=== PATIENT | female | born 1975 | race Caucasian/White ===

== ENCOUNTER 2022-09-03 13:07 | Emergency (ER) | payer MEDICAID, SELFPAY ==
[2022-09-03 13:08] VITALS: BP 172/124; PULSE 130; RESP 18; TEMP 36.3; O2SAT 98; BMI 22.1
--- NOTE | 2022-09-03 14:42 | ED.RN ---
PT DID NOT SHOW UP WHEN NAME CALLED TO GO BACK TO ROOM, LWBS [id number]
== END 2022-09-03 14:40 | disposition left against medical advice (07) ==
LOC: ED 14:44
DX: F19.19 Other psychoactive substance abuse with unspecified psychoactive substance-induced disorder (principal)

== ENCOUNTER 2022-09-03 18:16 | Observation (INO) | payer OTHER, SELFPAY ==
[2022-09-03 18:17] VITALS: BP 116/97; PULSE 96; RESP 18; TEMP 36.8; O2SAT 94; BMI 21.9
--- NOTE | 2022-09-03 20:25 | EDS_ITS ---
HPI History of Present Illness Chief Complaint: Substance Abuse Informant: patient Narrative Narrative: Patient presents requesting detox from heroin. She states she knows there is sometimes fentanyl mixed in. She does not use meth benzodiazepines or drink alcohol. She has been using for about 4 years. She has never gone through detox. What made her come in and she just decided she needs to get off this drug as its not doing her any good. Her last use was about 24 hours ago. She states she is not getting diarrhea but she feels anxious. She states her skin is starting to crawl a little bit. She feels a little bit nauseated but is not vomiting. These are her typical withdrawal symptoms that she has had. She denies any other physical complaints or being ill recently until she started withdrawing. Patient is on losartan for high blood pressure. [facility] Medical History HTN (hypertension) Polysubstance abuse Tobacco use Home Medications losartan 50 mg-hydrochlorothiazide 12.5 mg tablet 1 tab PO DAILY 09/03/22 [History Last Taken Unknown] Allergy/AdvReac Type Severity Reaction Status Date / Time Penicillins Allergy Unknown Verified 09/03/22 18:18 Surgical History (Updated 09/03/22 @ 22:[address] April Kern MD) History of elective breast augmentation Social History Smoking Status: Current every day smoker tobacco type: cigarettes ROS ROS ED Constitutional Constitutional ED: Reports sweats; Denies fever(s) or subjective Eyes Eyes: Denies change in vision ENT ENT ED: Reports rhinorrhea; Denies sore throat Cardiovascular Cardiovascular: Denies palpitations Respiratory/Chest Respiratory/Chest: Denies cough Gastrointestinal Gastrointestinal: Reports nausea; Denies diarrhea or vomiting Musculoskeletal Musculoskeletal: Denies myalgias Integumentary Denies rash Neurologic Neurologic: Denies headache(s) Hematologic/Lymphatic Hematologic/Lymphatic: Denies lymphadenopathy Allergic/Immunologic Allergic/Immunologic ED: Denies urticaria EXAM Physical Exam Narrative Exam Narrative: Patient is awake alert. She does not look toxic or acutely ill. Mucous membranes are moist and there is no sign of facial trauma. Neck is supple Lungs are clear. Heart is regular. Not tachycardic to any significant degree. No murmur is heard. Abdomen is soft. It is not tender. Extremities show no swelling rash or tenderness. Neurologically she is awake she is alert and appropriate. She may have a slightly flat affect. Const Vital Signs: 09/03/22 18:17 Temperature 98.3 F Temperature Source Temporal Pulse Rate 96 Respiratory Rate 18 Blood Pressure 116/97 H Blood Pressure Mean 103 Pulse Ox 94 Oxygen Delivery Method Room Air MDM MDM MDM Narrative Medical decision making narrative: Patient CBC shows no marked abnormalities. Electrolytes showed low potassium which is replaced. Liver function test showed no marked abnormalities was negative Talk screen was a cocaine and benzodiazepines although she denied using these. The certainly could be mixed in with what she is given. Lab Data Attestation: I reviewed the patient's lab results. Discharge Plan Triage Chief Complaint: Substance Abuse ED Provider: Alvarado Dior Dx/Rx/DC Orders Clinical Impression: Opiate abuse, continuous, Opiate withdrawal, Desire for detoxification, Acute hypokalemia Primary Care Provider: Aniket Newman Disposition Disposition: Acute Care Hospital [facility]
--- NOTE | 2022-09-03 20:53 | PCM.HP.STD ---
HPI - General General Date of Admission: 09/03/22 Date of Service: 09/03/22 Chief Complaint: Acute Opiate Withdrawal HPI Narrative The patient is a 47 y/o F w/ PMHx: Untreated Anxiety and Depression, Tobacco use, HTN, olysubstance abuse (Heroin, Fentanyl, uses ~ 1/2 gm daily, started ~ 4 years prior following the of her brother) who presents to the [facility] ED on 09/03/22 w/ noted acute opiate withdrawal onset starting on day of presentation following last dose administered approximate 24 hours prior to current presentation with abdominal pain/cramping, generalized body aches and pains, rhinorrhea, anxiousness, restless leg, sweating, nausea without emesis, sensation of her skin crawling. Patient interested in attaining clean status. She has never undergone detox and has been using for approximately 4 years. Work-up in the ED included T98.3, heart rate 96, BP 116/97, respiratory rate 18, 94% oxygenation on room air, CBC, CMP, urine drug screen, ethyl alcohol level, testing all pending upon requested evaluation of patient. [facility] Medical History Anxiety and depression HTN (hypertension) Hypertension Polysubstance abuse Substance abuse Tobacco use Home Medications losartan 50 mg-hydrochlorothiazide 12.5 mg tablet 1 tab PO DAILY blood pressure 09/03/22 [History Last Taken 09/03/22] Allergy/AdvReac Type Severity Reaction Status Date / Time Penicillins Allergy Unknown Verified 09/03/22 18:18 Family History (Updated 09/03/22 @ 22:[address] April Kern MD) Mother Heart disease Hypertension other (Denies any marked paternal family history including HD, DM, CA.) Surgical History (Updated 09/03/22 @ 22:[address] April Kern MD) History of elective breast augmentation Social History (Updated 09/03/22 @ 22:[address] April Kern MD) Smoking Status: Current every day smoker tobacco type: cigarettes Smoking packs per day: 0.5 Smoking cigarettes per day: 10.0 alcohol intake: never substance use type: heroin, opiates and other details: Snorts heroin, fentanyl, usually 1/2 gm daily. ROS ROS Narrative Admission Review of Systems: CONSTITUTIONAL: No weight loss, fever, + chills, weakness or fatigue. HEENT: + Congestion, rhinorrhea Eyes: No visual loss, blurred vision, double vision or yellow sclerae. Ears, Nose, Throat: No hearing loss, sneezing, sore throat. SKIN: No rash or itching, lesions, wounds. CARDIOVASCULAR: No chest pain, chest pressure or chest discomfort, palpitations, edema, orthopnea, syncopal events. RESPIRATORY: No shortness of breath, cough or sputum, wheezing, hemoptysis. GASTROINTESTINAL: + anorexia, nausea without vomiting, abdominal cramping/pain. No diarrhea, melena, BRBPR. GENITOURINARY: No dysuria, frequency, urgency or retention. NEUROLOGICAL: + Restlessness, tactile disturbances no headache, dizziness, syncope, paralysis, ataxia, numbness or tingling in the extremities, focal weakness, change in bowel or bladder control, seizure. MUSCULOSKELETAL: + muscle, back pain, joint pain or stiffness. HEMATOLOGIC: No anemia, bleeding or bruising. LYMPHATICS: No enlarged nodes. No history of splenectomy. PSYCHIATRIC: + history of depression or anxiety. ENDOCRINOLOGIC: + reports of sweating, cold or heat intolerance. No polyuria or polydipsia. ALLERGIES: No history of asthma, hives, eczema or rhinitis. Vital Signs Vital Signs Vital Signs: 09/03/22 18:17 Temperature 98.3 F Temperature Source Temporal Pulse Rate 96 Respiratory Rate 18 Blood Pressure 116/97 H Blood Pressure Mean 103 Pulse Ox 94 Oxygen Delivery Method Room Air Weight Weight: 120 lb Body Mass Index (BMI) 21.9 Physical Exam Narrative Physical Examination: General: Awake, alert, oriented x 3 and cooperative, seated upright in the ED bed, fatigued, restless, yawning. Skin: Normal color, normal turgor, no icterus, no cyanosis except occasional staged ecchymoses. HEENT: AT/NC, EOMI, PERRLA, dry MM, no carotid bruits or JVD noted. Lungs: Diminished, greater bases, moderate effort, no rales, ronchi or wheezing. Heart: Improving, mildly tachycardic with regular rhythm; no gallop, rub audible. Abdomen: Soft, mild generalized discomfort with palpation but no rebound or guarding, ND, hyperactive BS, no HSM. Extremities: No cyanosis, clubbing, or edema. Neurological: Patient awake, alert, oriented as noted, cognitive function intact; pupils equally reactive to light and accommodation, cranial nerves II-XII grossly normal, moving all 4 extremities, no focal deficits, strength moderately global decrease secondary to acute withdrawal presentation, restless, mildly agitated Psychiatric: Affect appears restless, mildly agitated, suspect and discussed underlying depression and anxiety, usage of opiates started following the of her brother, tearful. Results Lab / Micro Data Result Diagrams: 09/03/22 21:16 09/03/22 21:16 Assessment & Plan Assessment/Plan (1) Opiate withdrawal: PLAN: Plan The patient is a 47 y/o F w/ PMHx: Untreated Anxiety and Depression, Tobacco use, HTN, olysubstance abuse (Heroin, Fentanyl, uses ~ 1/2 gm daily, started ~ 4 years prior following the of her brother) who presents to the [facility] ED on 09/03/22 w/ noted acute opiate withdrawal. #1. Acute Opiate Withdrawal: Will admit to [facility], routine labs as noted pending upon requested evaluation of patient, will initiate and continue on protocol with tapering course of Subutex, as needed tylenol, ibuprofen, bowel regimen, gabapentin, Bentyl, Vistaril, methocarbamol, clonidine, PRN nightly trazodone for insomnia, IV fluids, IV antiemetics. Once patient clinically improved and completion of taper nearing will plan consultation with case management for transition to next level of rehabilitation care. #2. Polysubstance Abuse: Given history we will obtain HIV and hepatitis panel although patient currently not candidate for hep C treatment currently as needs to be clean, sober x 6 months, documented attendance NA or AA meetings, counseling and ongoing negative drug screens. #3. Hypertension: Continue home regimen including losartan, PRN hydralazine. #4. Untreated anxiety and depression: Likely contributing greatly to patient's substance abuse, discussed potential for future medication as well as counseling/therapy with pending case management/substance abuse counselor evaluation. #5. Tobacco Abuse: Encouraged cessation, inpatient consultation per RT, NR if desired. #6. DVT prophylaxis: Low risk, encourage ambulation. Admission Evaluation Time spent evaluating chart, patient history, patient evaluation, care planning and discussion with specialists: 60 minutes. Charges/Coding Visit Charges Inpatient E&M: 67644 Init Hosp L2
[2022-09-03 21:20] VITALS: BP 124/91; PULSE 74; RESP 14; TEMP 37; O2SAT 99
[2022-09-03 21:32] LABS: Absolute Lymphocyte Count 3.99 X10^3/uL (0.83-4.51); Absolute Neutrophil Count 4.3 X10^3/uL (2.0-7.7); Basophil# 0.08 X10^3/uL; Basophil% 0.8 % (0-1); Eosinophil# 0.36 X10^3/uL; Eosinophils% 3.8 % (0-5); Hemoglobin 13.8 g/dL (12.0-15.0); Lymphocyte # 3.99 X10^3/ul (0.83-4.51); Mean Corp Hgb Conc 32.1 g/dL (32-36); Mean Corpuscular Hgb 29.7 pg (27.0-32.0); Mean Corpuscular Volume 92.7 fL (81-99); Mean Platelet Vol. 10.4 fl (6.2-12.0); Monocyte# 0.72 X10^3/uL; Monocyte% 7.6 % (0-10); NRBC Flagged by Analyzer 0 % (0-5); Neutrophil # 4.34 X10^3/uL (2.7-7.7); Neutrophil % 45.6 % (47-70); Platelet Count 309 K/mm3 (150-450); RBC Distribution Width CV 13.3 % (11.6-14.6); RBC Distribution Width SD 45.1 fl (35.1-43.9); Red Blood Count 4.64 M/mm3 (4.2-5.4); White Blood Count 9.5 K/mm3 (4.4-11.0)
[2022-09-03 21:43] LABS: Internal QC Validated? YES +Cl - CLEAR BKGD; Pregnancy, Serum, hCG Quali. NEGATIVE Negative
[2022-09-03 21:45] LABS: Alcohol, Blood (Medical)-Serum < 3.0 mg/dL
[2022-09-03 21:52] LABS: ALB/GLOB Ratio 0.8 RATIO (0.9-2.4); AST(SGOT) 10 U/L (15-37); Alanine Aminotransfer ALT/SGPT 17 U/L (13-56); Albumin, Serum 3.4 g/dL (3.2-5.0); Alkaline Phosphatase 58 U/L (45-117); Anion Gap 1 (5-15); BUN 14 mg/dL (7-18); BUN/Creat Ratio 18.3 RATIO (10-20); Calcium,Total 9.6 mg/dL (8.5-10.1); Chloride 100 mmol/L (98-107); Creatinine, Serum 0.76 mg/dL (0.55-1.02); EST Glomerular Filtration Rate 86 mL/min (>60); Est Glom Filt Rate - Afr Amer 104 mL/min (>60); Globulin 4.1 g/dL (2.2-4.2); Glucose 101 mg/dL (74-106); Potassium 2.9 mmol/L (3.5-5.1); Protein, Total 7.5 g/dL (6.4-8.2); Sodium Level 136 mmol/L (136-145)
[2022-09-03 21:54] LABS: Amphetamine Urine VISTA NEGATIVE (<1000 ng/mL); Barbiturate Urine VISTA NEGATIVE (< 200 ng/mL); Benzodiazepine Urine VISTA POSITIVE (< 200 ng/mL); Cocaine Urine VISTA POSITIVE (< 300 ng/mL); Ecstacy Urine VISTA NEGATIVE (< 500 ng/mL); Methadone Urine VISTA NEGATIVE (< 300 ng/mL); PCP Urine VISTA NEGATIVE (< 25 ng/mL); THC Urine VISTA NEGATIVE (< 50 ng/mL); Vista UDS pH Range 5
--- NOTE | 2022-09-03 22:00 | CM.ED ---
Social Work Note Referral Source: case find Referral Reason: PETRA STEPHEN met with patient and introduced herself and role as [facility] Wire Strander. Patient was sitting on hospital bed and agreeable to speak with HAILEE. SW inquired about patient's AOD use and knowledge of [facility] program. Patient reports herion use with last date Friday and reports no knowledge of [facility]. SW briefly reviewed rules including it being a voluntary program, patient's items being locked up, avergae length of detox is 3-5 days and patient will meet with addictions therapist, Dewey, for after care and discharge planning. Patient reports personal connection with Dewey and is requesting another staff member assist with discharge planning. SW validated patient's concerns and explained she would inform the treatment navigator so something else is arranged. Patient reports understanding and has no other questions at this time. HAILEE contacted treatment navigator and spoke with Dewey. SW reviewed patient reporting a conflict and requesting another staff to assist with discharge planning. Dewey aware and will coordinate with another staff member to assist patient. Plan: LORI Gann
[2022-09-03 22:18] VITALS: BMI 21.9
[2022-09-03 22:18] LABS: HIV - WCH Non-Reactive (Nonreactive)
[2022-09-03 22:35] VITALS: BP 112/89; PULSE 73; RESP 16; TEMP 36.8; O2SAT 97
[2022-09-03 22:39] LABS: Magnesium 2.1 mg/dL (1.6-2.6)
[2022-09-03] MEDS: Potassium Chloride Oral Tablet 20 MEQ 40 MEQ PO (22:56)
[2022-09-03] MEDS: Gabapentin 300 MG Capsule PO (23:02)
[2022-09-03 23:49] LABS: Hepatitis B Surface Antibody Non-Reactive; Hepatitis B Surface Antigen Non-Reactive (Nonreactive); Hepatitis C Antibody Non-Reactive (Nonreactive)
[2022-09-04] MEDS: cloNIDine HCl 0.1 MG Tablet PO ×2 (05:53→13:24)
[2022-09-04] MEDS: Methocarbamol 750 MG Tablet 1500 MG PO ×2 (05:53→13:24)
[2022-09-04 05:57] VITALS: BP 115/85; PULSE 70; RESP 12; TEMP 36.8; O2SAT 98
[2022-09-04 07:40] VITALS: O2SAT 98
--- NOTE | 2022-09-04 07:54 | PN.HOSP_ITS ---
Reason for Visit Reason for Visit: Diagnoses Opioid use, unspecified with withdrawal (09/03/22) Subjective Subjective Feels sick. Restless legs. Objective Data Objective Data Vital Signs: Vital Signs Temp Pulse Resp BP Pulse Ox O2 Del Method 36.8 C 70 12 115/85 H 98 Room Air 09/04/22 05:57 09/04/22 05:57 09/04/22 05:57 09/04/22 05:57 09/04/22 05:57 09/04/22 05:57 Oxygen Delivery Method Room Air Weight: 54.476 kg Body Mass Index (BMI) 21.9 Intake & Output: Intake and Output for Last 24 Hours 09/02/22 09/03/22 09/04/22 23:59 23:59 23:59 Intake Total 600 / 600 Balance 600 / 600 Lab / Micro Data Result Diagrams: 09/03/22 21:16 09/03/22 21:16 Labs: Laboratory Results - last 24 hr 09/03/22 21:16: HIV 1&2 Antibody Non-Reactive 09/03/22 21:16: WBC 9.5, RBC 4.64, Hgb 13.8, Hct 43.0, MCV 92.7, MCH 29.7, MCHC 32.1, RDW Std Deviation 45.1 H, RDW Coeff of Martha 13.3, Plt Count 309, MPV 10.4, Immature Gran % (Auto) 0.200, Neut % (Auto) 45.6 L, Lymph % (Auto) 42.0 H, [place] % (Auto) 7.6, Eos % (Auto) 3.8, Baso % (Auto) 0.8, Absolute Neuts (auto) 4.3, A bsolute Lymphs (auto) 3.99, Nucleated RBC % 0 09/03/22 21:16: Sodium 136, Potassium 2.9 L, Chloride 100, Carbon Dioxide 35.0 H , Anion Gap 1 L, BUN 14, Creatinine 0.76, Estim Creat Clear Calc 71.60, Est GFR (MDRD) Af Amer 104, Est GFR (MDRD) Non-Af 86, BUN/Creatinine Ratio 18.3, Glucose 101, Calcium 9.6, Total Bilirubin 0.30, AST 10 L, ALT 17, Alkaline Phosphatase 58, Total Protein 7.5, Albumin 3.4, Globulin 4.1, Albumin/Globulin Ratio 0.8 L 09/03/22 21:16: Ethyl Alcohol < 3.0 09/03/22 21:16: Serum , Qual NEGATIVE 09/03/22 21:16: Magnesium 2.1 09/03/22 21:16: Hep Bs Antigen Non-Reactive, Hep Bs Antibody Non-Reactive, Hepatitis C Antibody Non-Reactive 09/03/22 21:17: Urine Opiates Screen NEGATIVE, Urine Methadone Screen NEGATIVE, Ur Barbiturates Screen NEGATIVE, Ur Phencyclidine Scrn NEGATIVE, Ur Amphetamines Screen NEGATIVE, MDMA (Ecstasy) Screen NEGATIVE, U Benzodiazepines Scrn POSITIVE H, Urine Cocaine Screen POSITIVE H, U Cannabinoids Screen NEGATIVE, Ur Drug Screen Comment Physical Exam Const alert and no apparent distress HEENT head/scalp atraumatic and moist oral mucous membranes Psych Mood & Affect: anxious Assessment & Plan Assessment/Plan (1) Opiate withdrawal: PLAN: Buprenorphine taper as well as other medications for withdrawal symptoms consultation with case management for transition to next level of rehabilitation care. PLAN: Plan Chronic conditions: * Polysubstance Abuse: HIV and HCV work up negative, sober x 6 months, documented attendance NA or AA meetings, counseling and ongoing negative drug screens. * Hypertension: Continue home regimen including losartan, PRN hydralazine. * Untreated anxiety and depression: Likely contributing greatly to patient's substance abuse, discussed potential for future medication as well as counseling/therapy with pending case management/substance abuse counselor evaluation. * tobacco Abuse: Encouraged cessation, inpatient consultation per RT, NR if desired. DVT prophylaxis: Low risk, encourage ambulation. Charges/Coding Visit Charges Inpatient E&M: 77470 Subs Hosp L1
[2022-09-04] MEDS: hydroCHLOROthiazide 12.5mg 12.5 MG PO (09:57)
[2022-09-04] MEDS: Losartan Potassium 50 MG Tablet PO (09:57)
--- NOTE | 2022-09-04 10:07 | NURSING ---
from 8am-10 am sleeping
[2022-09-04] MEDS: Dicyclomine 10 MG Capsule 20 MG PO (10:20)
[2022-09-04] MEDS: Ondansetron 8 MG Tablet PO (10:20)
[2022-09-04] MEDS: Buprenorphine HCl 2 MG TAB.SUBL SL ×2 (10:20→17:33)
[2022-09-04] MEDS: Acetaminophen 325 MG Tablet 650 MG PO (10:20)
[2022-09-04 10:57] VITALS: BP 137/97; PULSE 96; RESP 18; TEMP 36.7; O2SAT 99
[2022-09-04] MEDS: Ibuprofen 600 MG Tablet PO ×2 (11:48→22:45)
[2022-09-04] MEDS: Gabapentin 300 MG Capsule PO ×2 (11:49→22:45)
[2022-09-04] MEDS: hydrOXYzine PAM 25 MG Capsule 50 MG PO (11:49)
[2022-09-04 13:46] VITALS: BP 158/75; PULSE 89; RESP 18; TEMP 36.6; O2SAT 100
[2022-09-04 22:41] VITALS: BP 147/107; PULSE 84; RESP 18; TEMP 36.6; O2SAT 98
[2022-09-05] MEDS: Methocarbamol 750 MG Tablet 1500 MG PO ×2 (02:07→14:09)
[2022-09-05] MEDS: Buprenorphine HCl 2 MG TAB.SUBL SL ×3 (02:07→17:49)
[2022-09-05 02:10] VITALS: BP 139/112; PULSE 85; RESP 16; TEMP 36.6; O2SAT 100
--- NOTE | 2022-09-05 07:29 | PCM.PN.HOSP ---
Reason for Visit Reason for Visit: Diagnoses Opioid use, unspecified with withdrawal (09/03/22) Subjective Subjective Feeling better. Still with restless legs. Objective Data Objective Data Vital Signs: Vital Signs Temp Pulse Resp BP Pulse Ox O2 Del Method 36.6 C 85 16 139/112 H 100 Room Air 09/05/22 02:10 09/05/22 02:10 09/05/22 02:10 09/05/22 02:10 09/05/22 02:10 09/05/22 02:10 Oxygen Delivery Method Room Air Weight: 54.476 kg Body Mass Index (BMI) 21.9 Intake & Output: Intake and Output for Last 24 Hours 09/03/22 09/04/22 09/05/22 23:59 23:59 23:59 Intake Total 950 / 950 650 / 650 Balance 950 / 950 650 / 650 Lab / Micro Data Result Diagrams: 09/03/22 21:16 09/03/22 21:16 Physical Exam Const alert and no apparent distress HEENT head/scalp atraumatic Resp normal respiratory effort and no retractions Assessment & Plan Assessment/Plan (1) Opiate withdrawal: PLAN: Buprenorphine taper as well as other medications for withdrawal symptoms consultation with case management for transition to next level of rehabilitation care. [facility] PLAN: Plan Chronic conditions: Polysubstance Abuse: HIV and HCV work up negative, sober x 6 months, documented attendance NA or AA meetings, counseling and ongoing negative drug screens. Hypertension: Continue home regimen including losartan, PRN hydralazine. Untreated anxiety and depression: Likely contributing greatly to patient's substance abuse, discussed potential for future medication as well as counseling/therapy with pending case management/substance abuse counselor evaluation. tobacco Abuse: Encouraged cessation, inpatient consultation per RT, NR if desired. DVT prophylaxis: Low risk, encourage ambulation. Charges/Coding Visit Charges Inpatient E&M: 17619 Subs Hosp L1
[2022-09-05 07:58] VITALS: BP 149/109; PULSE 96; RESP 18; TEMP 36.6; O2SAT 95
[2022-09-05] MEDS: Losartan Potassium 50 MG Tablet PO (08:01)
[2022-09-05] MEDS: hydrOXYzine PAM 25 MG Capsule 50 MG PO ×2 (08:01→14:09)
[2022-09-05] MEDS: hydroCHLOROthiazide 12.5mg 12.5 MG PO (08:01)
--- NOTE | 2022-09-05 08:39 | ADDICTION ---
This repairer typewriter met with client for d/c planning. Client is alert and oriented x4, pleasant with this repairer typewriter. Client indicates her DOC is Opioids (specifically Heroin/Fentanyl) she reports her use started approx. 4 years ago with the of her brother. She reports daily (multiple times) inhalation use of substance. Denies further use of substances. Reports h/o DUI of ETOH. Reports last ETOH use was around April 2022. 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 She reports family/friends/employer are not aware of her substance use or legal involvement. Client also has to adult children who are not aware of substance use. At this time her roommate is the only person who is aware of her substance use. Client reports she resides in a sober safe environment. Client indicates this is her first time attempted sobriety, she self-admitted to [facility] d/t the severity of opioid withdrawal symptoms. She denies involvement in 12-step community or treatment. She reports she has an appt. at [facility] 09/09 at 3:00 pm with Vianey. This repairer typewriter provided resources and information. Education re: MAT services offered through [facility]. Client signed LACIE for [facility] ([facility]), client has requested this repairer typewriter contact probation to inform that she admitted to [facility]. Client indicates she has an appt with probation tomorrow 09/06, she is not sure she will be d/'c'd in time to make appt.
[2022-09-05 10:36] VITALS: BP 135/98; PULSE 93; O2SAT 98
[2022-09-05 14:08] VITALS: BP 140/107; PULSE 106; RESP 18; TEMP 37.1; O2SAT 99
[2022-09-05] MEDS: Ibuprofen 600 MG Tablet PO ×2 (14:09→22:25)
[2022-09-05] MEDS: cloNIDine HCl 0.1 MG Tablet PO (14:09)
[2022-09-05] MEDS: Gabapentin 300 MG Capsule PO (17:49)
[2022-09-05] MEDS: Ondansetron 8 MG Tablet PO (17:51)
[2022-09-05] MEDS: Acetaminophen 325 MG Tablet 650 MG PO (19:25)
[2022-09-05 19:28] VITALS: PULSE 90
[2022-09-05 19:33] VITALS: BP 126/94; PULSE 83; RESP 18; TEMP 36.8; O2SAT 98
[2022-09-05] MEDS: traZODone 100 MG Tablet PO (21:09)
[2022-09-06] MEDS: Buprenorphine HCl 2 MG TAB.SUBL SL ×2 (02:13→09:53)
[2022-09-06 02:19] VITALS: BP 110/78; PULSE 66; RESP 16; TEMP 36.7; O2SAT 100
[2022-09-06] MEDS: Acetaminophen 325 MG Tablet 650 MG PO (05:14)
[2022-09-06] MEDS: hydrOXYzine PAM 25 MG Capsule 50 MG PO (05:16)
[2022-09-06 08:39] VITALS: BP 115/66; PULSE 70; RESP 18; TEMP 36.3; O2SAT 100
[2022-09-06] MEDS: hydroCHLOROthiazide 12.5mg 12.5 MG PO (08:44)
[2022-09-06] MEDS: cloNIDine HCl 0.1 MG Tablet PO (08:44)
[2022-09-06] MEDS: Methocarbamol 750 MG Tablet 1500 MG PO (08:44)
[2022-09-06] MEDS: Gabapentin 300 MG Capsule PO (08:44)
[2022-09-06] MEDS: Losartan Potassium 50 MG Tablet PO (08:44)
--- NOTE | 2022-09-06 09:54 | PCM.DC ---
Discharge Instructions Diet Discharge Diet: No restrictions Follow Up Care Test Results: Test results from this visit will be discussed in further detail at your follow-up appointment, if applicable. Discharge Plan Admission Admit Date/Time: 09/03/22 21:01 Primary Reason for Your Visit: opiate withdrawal Attending Provider: Mason Tam Primary Care Provider: Aniket Newman Consulting Providers: April Kern Instructions Additional Instructions / Restrictions: Follow up with [facility] intensive outpatient next week. Discharge Orders/Prescriptions Prescriptions: Discontinued losartan-hydrochlorothiazide 50-12.5 mg tablet 1 tab PO DAILY Label Comments: TAKE 1 TABLET BY MOUTH ONCE DAILY Referrals / Follow Up: Aniket Newman MD [Primary Care Provider] - Care Physician,No Primary [Non-Staff] - Disposition Disposition (needs filled in before D/C Order can be placed): Home, Self Care
--- NOTE | 2022-09-06 09:57 | PCM.DC.SUM ---
Providers Date of Admission: 09/03/22 Primary Care Physician: Dr. Aniket Newman MD Reason For Visit: OPIATE WITHDRAWL Diagnosis Discharge Diagnosis (1) Opiate withdrawal: Status: Acute Code(s): F11.93 - Opioid use, unspecified with withdrawal Plan: Buprenorphine taper as well as other medications for withdrawal symptoms consultation with case management for transition to next level of rehabilitation care. Patient to follow up with [facility] for [facility] Offered to keep the patient 1 more night to complete the 3-day taper of buprenorphine, she declines, preferring to discharge today. Plan Chronic conditions: Polysubstance Abuse: HIV and HCV work up negative, sober x 6 months, documented attendance NA or AA meetings, counseling and ongoing negative drug screens. Hypertension: Continue home regimen including losartan, PRN hydralazine. Untreated anxiety and depression: Likely contributing greatly to patient's substance abuse, discussed potential for future medication as well as counseling/therapy with pending case management/substance abuse counselor evaluation. tobacco Abuse: Encouraged cessation, inpatient consultation per RT, NR if desired. DVT prophylaxis: Low risk, encourage ambulation. Hospital Course Operations None Summary of Care Provided Minutes Spent on Discharge: 26 Physical Exam Const alert and no apparent distress General Appearance: cooperative and comfortable HEENT normocephalic and head/scalp atraumatic Weight / BMI Weight Weight: 54.476 kg Body Mass Index (BMI) 21.9 ABG / Lab / Microbiology Data Result Diagrams: 09/03/22 21:16 09/03/22 21:16 D/C Instructions Discharge Diet: No restrictions Meaningful Use Info Meaningful Use Diagnoses (Choose all that apply): None applicable Discharge Plan Admission Admit Date/Time: 09/03/22 21:01 Primary Reason for Your Visit: opiate withdrawal Attending Provider: Mason Tam Primary Care Provider: Aniket Newman Consulting Providers: April Kern Instructions Additional Instructions / Restrictions: Follow up with [facility] intensive outpatient next week. Discharge Orders/Prescriptions Prescriptions: Discontinued losartan-hydrochlorothiazide 50-12.5 mg tablet 1 tab PO DAILY Label Comments: TAKE 1 TABLET BY MOUTH ONCE DAILY Referrals / Follow Up: Aniket Newman MD [Primary Care Provider] - Care Physician,No Primary [Non-Staff] - Disposition Disposition (needs filled in before D/C Order can be placed): Home, Self Care Charges/Coding Visit Charges Inpatient E&M: 71132 Disch Hosp
== END 2022-09-06 10:49 | disposition home or self-care (01) ==
LOC: ED 20:33 → MS3 21:59
PROVIDERS: Admitting Provider Family Medicine; Emergency Provider Emergency Medicine; PCP Family Medicine
DX: F11.23 Opioid dependence with withdrawal (principal); E87.6 Hypokalemia; I10 Essential (primary) hypertension; F17.210 Nicotine dependence, cigarettes, uncomplicated; Z79.899 Other long term (current) drug therapy
CPT/HCPCS: 36415; 80053; 80307; 82077; 83735; 84703; 85025; 86703; 86706; 86803; 87340; 99283; 99406; H0012

== ENCOUNTER 2023-08-21 13:39 | Emergency (ER) | payer MEDICAID, SELFPAY ==
[2023-08-21 13:39] VITALS: BP 160/110; PULSE 114; RESP 18; O2SAT 100
[2023-08-21 13:40] VITALS: BP 154/11; PULSE 111; RESP 18; TEMP 36.6; O2SAT 100; BMI 21.6
--- NOTE | 2023-08-21 14:05 | ED.VIS.GI ---
HPI HPI - GI History of Present Illness Chief Complaint: Abd Pain Informant: patient Narrative Narrative: 48-year-old female presenting to the emergency room with chief complaint of nausea. Patient states for about 1 week she has had persistent nausea. This is caused her to basically only consume liquids in an effort to stay hydrated. She states she feels worse when she gets up and moves around. She states that she has tried some Pepto-Bismol couple days ago and for the past 2 days now has noted that her stool seems black. She notes a metallic/chemical like taste in her mouth/burps. She does note some indigestion. She denies any pain in the abdomen. She denies any known gallbladder or pancreatic issues. No reported fevers. Stools alternate between solid and diarrhea. No reported rashes. PFSH PFSH Medical History Acute hypokalemia Anxiety and depression HTN (hypertension) Hypertension Opiate abuse, continuous Polysubstance abuse Substance abuse Tobacco use Home Medications ciprofloxacin HCl 500 mg tablet 500 mg PO BID #14 TABLETS 08/21/23 [Rx Last Taken Unknown] metronidazole 500 mg tablet 500 mg PO Q8H #21 tabs 08/21/23 [Rx Last Taken Unknown] ondansetron 4 mg disintegrating tablet 4 mg PO Q6H PRN PRN Nausea #20 tabs 08/21/23 [Rx Last Taken Unknown] Allergy/AdvReac Type Severity Reaction Status Date / Time Penicillins Allergy Unknown Verified 08/21/23 13:39 Family History Mother Heart disease Hypertension Surgical History History of elective breast augmentation Social History Smoking Status: Current every day smoker tobacco type: e-cigarettes alcohol intake: never substance use type: heroin, opiates and other details: Snorts heroin, fentanyl, usually 1/2 gm daily. ROS ROS ED Constitutional Constitutional ED: Denies chills, fever(s) or weight loss Eyes Eyes: Denies change in vision or diplopia ENT ENT ED: Denies ear pain, rhinorrhea or sore throat Cardiovascular Cardiovascular: Denies chest pain, orthopnea, palpitations or racing heartbeat Respiratory/Chest Respiratory/Chest: Denies cough, dyspnea or orthopnea Gastrointestinal Gastrointestinal: Reports diarrhea and nausea; Denies abdominal pain, constipation, melena or vomiting Genitourinary Genitourinary ED: Denies dysuria, hematuria or urinary frequency Musculoskeletal Musculoskeletal: Denies arthralgias, back pain or myalgias Integumentary Denies abscess or rash Neurologic Neurologic: Denies headache(s) or weakness Psychiatric Psychiatric: Denies anxiety, depression, suicidal ideation or suicidal thoughts Endocrine Endocrinology: Denies polydipsia, polyphagia or polyuria Allergic/Immunologic Allergic/Immunologic ED: Denies mouth swelling, tongue swelling or urticaria EXAM Physical Exam Const Vital Signs: 08/21/23 13:40 08/21/23 13:39 08/21/23 15:39 Temperature 98 F Temperature Source Temporal Pulse Rate 111 H 114 H 78 Respiratory Rate 18 18 16 Blood Pressure 154/11 H 160/110 H 126/78 H Blood Pressure Mean 58 126 94 Pulse Ox 100 100 99 Oxygen Delivery Method Room Air Room Air Room Air Positive well nourished and well developed General Appearance ED: well developed HEENT Reports normocephalic, head/scalp atraumatic and moist mucous membranes Eyes PERRL and EOMs intact bilaterally Neck no lymphadenopathy, supple and no JVD Resp normal respiratory effort and clear to auscultation bilaterally Cardio regular rate, regular rhythm and no murmurs Rate: tachycardic GI normal to inspection, nondistended, normoactive bowel sounds and non-tender Palpation: soft Back/Spine no CVA tenderness and normal ROM Extremity normal to inspection General Extremety ED: Negative for edema General Extremity: Negative for edema Neuro oriented x3 and CN's II-XII intact bilaterally Sensorium / Orientation: alert Motor Exam: strength 5/5 throughout Psych mental status grossly normal Mood & Affect: Negative for depressed or tearful Skin no rashes or lesions noted and no wounds MDM MDM MDM Narrative Medical decision making narrative: White count 8.9 hemoglobin 13.1 platelet count of 393. Normal liver enzymes and lipase. Creatinine 0.74 glucose 95. test is negative. CT of the abdomen pelvis was obtained. This demonstrated fluid-filled distal small bowel loops with thickened wall. There is diffuse thickening of the colon suggestive of diffuse colitis. Her abdominal exam really has not changed. It is minimally tender. We talked about the need for her to establish primary care and will most likely need follow-up endoscopy or colonoscopy. We talked about whether or not to do antibiotics and at this point given the change in her symptomology in the past week it is reasonable that we treat with Cipro and Flagyl (penicillin allergy). I will continue to write for some Levi. She is unsure who she wishes to establish primary care with. She had not seen her primary care doctor since 2017 and they are now not accepting new patients. I can refer to general surgery to discuss possible endoscopy/colonoscopy if persistent symptoms or if she wishes to explore that. Patient is comfortable with this plan. It should be noted that the patient was tachycardic when she came in however now she has a heart rate of 78 blood pressure 126/78. History & Record Review Discussion w/independent historian: Patient Lab Data Attestation: I reviewed the patient's lab results. Labs: Laboratory Results - last 24 hr 08/21/23 14:20 WBC 8.9 RBC 4.47 Hgb 13.1 Hct 40.1 MCV 89.7 MCH 29.3 MCHC 32.7 RDW Std Deviation 42.7 RDW Coeff of Martha 13.1 Plt Count 393 MPV 10.7 Immature Gran % (Auto) 0.100 Neut % (Auto) 71.3 H Lymph % (Auto) 20.7 [place] % (Auto) 6.9 Eos % (Auto) 0.3 Baso % (Auto) 0.7 Absolute Neuts (auto) 6.3 Absolute Lymphs (auto) 1.84 Nucleated RBC % 0 Sodium 140 Potassium 3.6 Chloride 108 H Carbon Dioxide 27.0 Anion Gap 5 BUN 16 Creatinine 0.74 Estim Creat Clear Calc 72.73 Est GFR (MDRD) Af Amer 107 Est GFR (MDRD) Non-Af 89 BUN/Creatinine Ratio 21.7 H Glucose 95 Calcium 9.4 Total Bilirubin 0.50 Direct Bilirubin 0.16 AST 10 L ALT 16 Alkaline Phosphatase 50 Total Protein 7.5 Albumin 3.8 Globulin 3.7 Lipase 27 Serum , Qual NEGATIVE Radiography Diagnostic Testing: Clinical Impression(s) from Imaging Studies Abdomen/Pelvis CT 08/21/23 14:45 IMPRESSION: Colitis. Abnormal appearance of distal small bowel loops with thickened wall and fluid-filled bowel loops. Crohn''s disease should be ruled out. Electronically Signed: Alec Villalobos MD at 15:27 EDT , Discharge Plan Triage Chief Complaint: Abd Pain ED Provider: Peter Anne Dx/Rx/DC Orders Clinical Impression: Colitis, Nausea Instructions: ED Understanding Colitis Prescriptions: New ondansetron [ondansetron] 4 mg tablet,disintegrating 4 mg PO Q6H PRN PRN (Reason: Nausea) Qty: 20 0RF metronidazole [metronidazole] 500 mg tablet 500 mg PO Q8H Qty: 21 0RF ciprofloxacin HCl [ciprofloxacin HCl] 500 mg tablet 500 mg PO BID Qty: 14 0RF Primary Care Provider: Care Physician,No Primary Referrals: Dominique Jernigan MD [Med Staff - Active Staff] - As soon as possible (for primary care) Helga Ortega MD [Med Staff - Active Staff] - As soon as possible (for surgical evaluation/colonoscopy) Care Physician,No Primary [Primary Care Provider] - Disposition Disposition: Home, Self Care
[2023-08-21 14:34] LABS: Internal QC Validated? YES +Cl - CLEAR BKGD; Pregnancy, Serum, hCG Quali. NEGATIVE Negative
[2023-08-21] MEDS: Ondansetron 4 MG/2 ML Vial IV (14:34)
[2023-08-21] MEDS: 0.9% Normal Saline (1000mL) 1,000 ML 1000 ML IV (14:34)
[2023-08-21 14:36] LABS: Absolute Lymphocyte Count 1.84 X10^3/uL (0.83-4.51); Absolute Neutrophil Count 6.3 X10^3/uL (2.0-7.7); Basophil# 0.06 X10^3/uL; Basophil% 0.7 % (0-1); Eosinophil# 0.03 X10^3/uL; Eosinophils% 0.3 % (0-5); Hematocrit 40.1 % (37-47); Hemoglobin 13.1 g/dL (12.0-15.0); Lymphocyte # 1.84 X10^3/ul (0.83-4.51); Lymphocyte % 20.7 % (19-41); Mean Corp Hgb Conc 32.7 g/dL (32-36); Mean Corpuscular Hgb 29.3 pg (27.0-32.0); Mean Corpuscular Volume 89.7 fL (81-99); Mean Platelet Vol. 10.7 fl (6.2-12.0); Monocyte# 0.61 X10^3/uL; Monocyte% 6.9 % (0-10); NRBC Flagged by Analyzer 0 % (0-5); Neutrophil # 6.32 X10^3/uL (2.7-7.7); Neutrophil % 71.3 % (47-70); Platelet Count 393 K/mm3 (150-450); RBC Distribution Width CV 13.1 % (11.6-14.6); RBC Distribution Width SD 42.7 fl (35.1-43.9); Red Blood Count 4.47 M/mm3 (4.2-5.4); White Blood Count 8.9 K/mm3 (4.4-11.0)
[2023-08-21 14:43] LABS: AST(SGOT) 10 U/L (15-37); Alanine Aminotransfer ALT/SGPT 16 U/L (13-56); Albumin, Serum 3.8 g/dL (3.2-5.0); Alkaline Phosphatase 50 U/L (45-117); Anion Gap 5 (5-15); BUN 16 mg/dL (7-18); BUN/Creat Ratio 21.7 RATIO (10-20); Bilirubin, Direct 0.16 mg/dL (0.00-0.30); Calcium,Total 9.4 mg/dL (8.5-10.1); Chloride 108 mmol/L (98-107); Creatinine, Serum 0.74 mg/dL (0.55-1.02); EST Glomerular Filtration Rate 89 mL/min (>60); Est Glom Filt Rate - Afr Amer 107 mL/min (>60); Estimated Creatinine Clearance 72.73 ml/min; Globulin 3.7 g/dL (2.2-4.2); Glucose 95 mg/dL (74-106); Lipase 27 U/L (13-75); Potassium 3.6 mmol/L (3.5-5.1); Protein, Total 7.5 g/dL (6.4-8.2); Sodium Level 140 mmol/L (136-145)
--- NOTE | 2023-08-21 14:45 | CT_ITS ---
STUDY: CT ABDOMEN AND PELVIS WITH CONTRAST REASON FOR EXAM: Female, 48 years old. Abdominal pain. Breast has a foul odor. RADIATION DOSAGE (If Supplied By Facility): CTDIvol = ( 11.45 ) mGy, DLP = ( 315.93 ) mGycm TECHNIQUE: Transaxial images were obtained from the dome of the diaphragm to the symphysis pubis without oral contrast. IV 100mL Isovue-300 was administered. Sagittal and coronal images were reconstructed. Individualized dose optimization techniques were used for this CT. COMPARISON: None. FINDINGS: There is evidence of bilateral breast prostheses. The visualized lung bases are unremarkable. The visualized portions of the heart are within normal limits. Normal liver. Normal gallbladder and extrahepatic biliary system. Normal spleen. Normal pancreas. Normal bilateral adrenal glands. Normal right kidney. Normal left kidney. Normal visualized stomach. There is fluid filled distal small bowel loops with thickened wall. Inflammatory bowel disease such as Crohn''s disease should be ruled out. There is diffuse thickening of the colon suggestive of diffuse colitis. The appendix is visualized and appears normal. Normal abdominal aorta. Normal inferior vena cava. Normal retroperitoneum. Normal urinary bladder. Normal abdominal wall. Normal osseous structures. CT/Abdomen/Pelvis W IV Cont ONLY IMPRESSION: Colitis. Abnormal appearance of distal small bowel loops with thickened wall and fluid-filled bowel loops. Crohn''s disease should be ruled out. Electronically Signed: Alec Villalobos MD at 15:27 EDT ,
[2023-08-21 15:39] VITALS: BP 126/78; PULSE 78; RESP 16; O2SAT 99
[2023-08-21 16:00] VITALS: BP 118/79; PULSE 67; RESP 14; TEMP 36.4; O2SAT 99
== END 2023-08-21 16:07 | disposition home or self-care (01) ==
PROVIDERS: Emergency Provider Emergency Medicine; Visit Provider Emergency Medicine
DX: R11.0 Nausea (principal); K52.9 Noninfective gastroenteritis and colitis, unspecified; I10 Essential (primary) hypertension
CPT/HCPCS: 74177; 80048; 80076; 83690; 84703; 85025; 96361; 96374; 99283; J7030; Q9967; A4216; J2405

== ENCOUNTER 2023-10-24 15:30 | Emergency (ER) | payer MEDICAID, SELFPAY ==
[2023-10-24 15:30] VITALS: BP 140/110; BP 158/112; PULSE 107; PULSE 113; RESP 14; RESP 20; TEMP 36.6; O2SAT 98; O2SAT 99; BMI 20.2
--- NOTE | 2023-10-24 15:53 | EDS_ITS ---
HPI History of Present Illness Chief Complaint: Nausea/Vomiting Detail of Chief Complaint: Patient presents with nausea. She said dry heaves. She states it is diffi Informant: patient Onset/Context/Timing Onset: Month(s) Context: Gradual Onset Timing: Continuous Quality: Nausea with dry heaves Location: GI Current Severity: Moderate Maximum Severity: Severe Worsened by: Nothing Relieved by: Nothing Associated Symptoms Associated Symptoms: Diarrhea with mucus. Narrative Narrative: Patient is a 48-year-old woman. Patient was seen August 20 and radiologic imaging and history were suggestive of Crohn's disease. Patient underwent colonoscopy by Dr. Brizuela. He did not see any abnormalities. Biopsy results are pending. Patient denies fever, chills night sweats. Patient does report significant nausea. There is no precipitating or alleviating factors. Patient states she has dry heaves. She is not able to vomit. She states currently vomited twice in her life. Patient reports a 10 kg weight loss over the past 2 months. Patient denies fever, chills night sweats. Patient denies HEENT symptoms. Patient denies cardiac respiratory symptoms. Patient presently denies abdominal pain. When she does have abdominal pain was upper abdomen. Denies intolerance to greasy or fried foods. She has had no abdominal surgery. She denies urologic symptoms. Prior similar symptoms: Yes Recent Illness/Hospitalization: Yes PFSH PFSH Medical History Substance abuse Hypertension Anxiety and depression Acute hypokalemia Opiate abuse, continuous HTN (hypertension) Polysubstance abuse Tobacco use Home Medications ?Medication ?Instructions ?Recorded ?Last Taken ?Type ondansetron 4 mg disintegrating 4 mg PO Q8H PRN PRN Nausea #20 tabs 10/24/23 Unknown Rx tablet Allergy/AdvReac Type Severity Reaction Status Date / Time Penicillins Allergy Unknown Verified 10/24/23 15:31 Family History Mother Heart disease Hypertension Surgical History History of elective breast augmentation Social History Smoking Status: Current every day smoker tobacco type: e-cigarettes alcohol intake: never substance use type: heroin, opiates and other details: Snorts heroin, fentanyl, usually 1/2 gm daily. ROS ROS ED Constitutional Constitutional ED: Reports weight loss; Denies chills, fever(s), subjective or sweats Eyes Eyes: Denies blurry vision, change in vision or diplopia ENT ENT ED: Denies ear pain, rhinorrhea or sore throat Cardiovascular Cardiovascular: Denies chest pain, palpitations or racing heartbeat Respiratory/Chest Respiratory/Chest: Denies cough, dyspnea or dyspnea on exertion Gastrointestinal Gastrointestinal: Reports abdominal pain, diarrhea and nausea; Denies constipation, melena or vomiting Genitourinary Genitourinary ED: Denies dysuria, hematuria or urinary frequency Musculoskeletal Musculoskeletal: Denies arthralgias or myalgias Integumentary Denies rash Neurologic Neurologic: Denies headache(s) or paresthesias Endocrine Endocrinology: Denies cold intolerance or heat intolerance Hematologic/Lymphatic Hematologic/Lymphatic: Reports systems reviewed and no addt'l complaints, except as documented EXAM Physical Exam Const Vital Signs: 10/24/23 15:30 10/24/23 15:30 10/24/23 17:30 Temperature 97.9 F Temperature Source Temporal Pulse Rate 107 H 113 H 70 Respiratory Rate 14 20 H 14 Blood Pressure 158/112 H 140/110 H Blood Pressure Mean 127 120 Pulse Ox 99 98 92 Oxygen Delivery Method Room Air Positive well nourished and well developed General Appearance ED: well developed and NAD; Negative for cyanotic or diaphoretic HEENT Reports moist mucous membranes HEENT Narrative: Head is atraumatic normocephalic. Ears normal. Nares patent. Patient does have tobacco odor to her breath. She states she vapes. She has not smoked a cigarette in a year. Eyes PERRL and EOMs intact bilaterally General Eye ED: Negative for pale conjunctiva or scleral icterus Neck no lymphadenopathy, supple and no JVD Chest Wall inspection of chest normal and palpation of chest normal Resp normal respiratory effort and clear to auscultation bilaterally Cardio regular rhythm, S1 normal heart sound, S2 normal heart sound and no murmurs; Negative for regular rate Rate: tachycardic GI normal to inspection, nondistended, normoactive bowel sounds, non-tender, non- distended and no masses; Negative for hepatosplenomegaly Auscultation: normoactive bowel sounds Back/Spine no CVA tenderness Extremity normal to inspection General Extremety ED: Negative for edema or tenderness General Extremity: Negative for edema Neuro oriented x3, CN's II-XII intact bilaterally and no sensory deficits noted Psych mental status grossly normal Skin no rashes or lesions noted, no wounds and skin turgor normal MDM MDM MDM Narrative Medical decision making narrative: Patient history and physical suggestive of inflammatory bowel disorder most likely Crohn's. Patient's significant concern at this time is nausea and weight loss. Blood work was obtained. The nausea was treated with Zofran. Prior records were reviewed and documented in appropriate portion of the chart. History & Record Review Additional record(s) reviewed:: Prior outpatient record (HPI narrative), Prior ED visit (Seen August 21, 2023. CAT scan at that time revealed small bowel loops with thickening and fluid-filled terminal ileum. Patient was treated with ciprofloxacin and metronidazole.) and Prior labs (Labs from August 20 were reviewed. Talk screen September 03, 2022 was positive for benzos and cocaine.) Lab Data Attestation: I reviewed the patient's lab results. Lab results narrative: CBC is normal. Comprehensive metabolic panel is normal. Labs: Laboratory Results - last 24 hr 10/24/23 15:53 WBC 6.7 RBC 4.53 Hgb 12.9 Hct 39.3 MCV 86.8 MCH 28.5 MCHC 32.8 RDW Std Deviation 42.0 RDW Coeff of Martha 13.2 Plt Count 297 MPV 10.8 Immature Gran % (Auto) 0.300 Neut % (Auto) 55.5 Lymph % (Auto) 37.4 [place] % (Auto) 5.7 Eos % (Auto) 0.3 Baso % (Auto) 0.8 Absolute Neuts (auto) 3.7 Absolute Lymphs (auto) 2.49 Nucleated RBC % 0 Sodium 139 Potassium 3.6 Chloride 105 Carbon Dioxide 28.0 Anion Gap 6 BUN 10 Creatinine 0.68 Estim Creat Clear Calc 79.15 Est GFR (MDRD) Af Amer 118 Est GFR (MDRD) Non-Af 98 BUN/Creatinine Ratio 14.7 Glucose 100 Calcium 9.5 Total Bilirubin 0.60 AST 9 L ALT 18 Alkaline Phosphatase 46 Total Protein 7.5 Albumin 4.0 Globulin 3.5 Albumin/Globulin Ratio 1.1 Treatment and Re-Evaluation :: Patient was reassessed at 1750. Her nausea has improved markedly. Will discharge with prescription for Zofran ODT. She has an appointment to see a physician at [facility]. She does not have a primary care physician. She was referred to Dr. Baldwin. Discharge Plan Triage Chief Complaint: Nausea/Vomiting ED Provider: Louis Romero Dx/Rx/DC Orders Clinical Impression: Nausea, Intermittent abdominal pain, Sinus tachycardia, Elevated blood-pressure reading without diagnosis of hypertension Instructions: ED Hypertension, To Be Confirmed, ED Vomiting (Adult) Prescriptions: New ondansetron 4 mg tablet,disintegrating 4 mg PO Q8H PRN PRN (Reason: Nausea) Qty: 20 0RF Primary Care Provider: Care Physician,No Primary Referrals: Maxi Baldwin MD [Med Staff - Active Staff] - 1-2 Weeks Care Physician,No Primary [Primary Care Provider] - Print Language: Spanish Disposition Disposition: Home, Self Care
[2023-10-24] MEDS: Ondansetron 4 MG/2 ML Vial IV (16:01)
[2023-10-24 16:05] LABS: Absolute Lymphocyte Count 2.49 X10^3/uL (0.83-4.51); Absolute Neutrophil Count 3.7 X10^3/uL (2.0-7.7); Basophil# 0.05 X10^3/uL; Basophil% 0.8 % (0-1); Eosinophil# 0.02 X10^3/uL; Eosinophils% 0.3 % (0-5); Hematocrit 39.3 % (37-47); Hemoglobin 12.9 g/dL (12.0-15.0); Lymphocyte # 2.49 X10^3/ul (0.83-4.51); Lymphocyte % 37.4 % (19-41); Mean Corp Hgb Conc 32.8 g/dL (32-36); Mean Corpuscular Hgb 28.5 pg (27.0-32.0); Mean Corpuscular Volume 86.8 fL (81-99); Mean Platelet Vol. 10.8 fl (6.2-12.0); Monocyte# 0.38 X10^3/uL; Monocyte% 5.7 % (0-10); NRBC Flagged by Analyzer 0 % (0-5); Neutrophil % 55.5 % (47-70); Platelet Count 297 K/mm3 (150-450); RBC Distribution Width CV 13.2 % (11.6-14.6); Red Blood Count 4.53 M/mm3 (4.2-5.4); White Blood Count 6.7 K/mm3 (4.4-11.0)
[2023-10-24 16:22] LABS: ALB/GLOB Ratio 1.1 RATIO (0.9-2.4); AST(SGOT) 9 U/L (15-37); Alanine Aminotransfer ALT/SGPT 18 U/L (13-56); Alkaline Phosphatase 46 U/L (45-117); Anion Gap 6 (5-15); BUN 10 mg/dL (7-18); BUN/Creat Ratio 14.7 RATIO (10-20); Calcium,Total 9.5 mg/dL (8.5-10.1); Chloride 105 mmol/L (98-107); Creatinine, Serum 0.68 mg/dL (0.55-1.02); EST Glomerular Filtration Rate 98 mL/min (>60); Est Glom Filt Rate - Afr Amer 118 mL/min (>60); Estimated Creatinine Clearance 79.15 ml/min; Globulin 3.5 g/dL (2.2-4.2); Glucose 100 mg/dL (74-106); Potassium 3.6 mmol/L (3.5-5.1); Protein, Total 7.5 g/dL (6.4-8.2); Sodium Level 139 mmol/L (136-145)
[2023-10-24 17:30] VITALS: PULSE 70; RESP 14; O2SAT 92
[2023-10-24 18:01] VITALS: BP 138/75; PULSE 76; RESP 14; TEMP 36.6; O2SAT 93
== END 2023-10-24 18:02 | disposition home or self-care (01) ==
PROVIDERS: Emergency Provider Emergency Medicine; Visit Provider Emergency Medicine
DX: R11.2 Nausea with vomiting, unspecified (principal); F11.10 Opioid abuse, uncomplicated; R00.0 Tachycardia, unspecified; R10.9 Unspecified abdominal pain; R03.0 Elevated blood-pressure reading, without diagnosis of hypertension; R19.7 Diarrhea, unspecified; F17.210 Nicotine dependence, cigarettes, uncomplicated; I10 Essential (primary) hypertension; R63.4 Abnormal weight loss
CPT/HCPCS: 80053; 85025; 96374; 99283; A4216; J2405

== ENCOUNTER 2024-02-03 05:45 | Emergency (ER) | payer MEDICAID, SELFPAY ==
[2024-02-03 05:46] VITALS: BP 161/108; PULSE 95; RESP 16; TEMP 36.2; O2SAT 93; BMI 25.1
[2024-02-03 05:52] VITALS: O2SAT 95
--- NOTE | 2024-02-03 06:02 | RAD_ITS ---
EXAM: XR RIGHT RIBS AND AP CHEST, 3 OR MORE VIEWS CLINICAL INDICATION: PAIN TECHNIQUE: Frontal and oblique views of the right ribs and frontal view of the chest. COMPARISON: No relevant prior studies available. FINDINGS: LUNGS AND PLEURAL SPACES: Unremarkable. No consolidation or edema. No pneumothorax. No effusion. HEART: Unremarkable. Cardiac silhouette not enlarged. MEDIASTINUM: Thoracic aorta is minimally elongated. No mediastinal widening. BONES/JOINTS: Slightly displaced acute fractures affect the anterolateral right fourth, fifth and sixth ribs. No rib is fractured in more than one place, as visualized. SOFT TISSUES: Bilateral breast implants are present. No soft tissue emphysema seen about the right ribs. There is mild subpleural thickening/ edema about the fractured right ribs. RAD/Ribs Uni Min 3V w/PA Chest IMPRESSION: Acute fractures of the anterolateral right fourth through sixth ribs. No pneumothorax is identified. Electronically Signed: Tone Pulido MD at 7:01 EDT ,
--- NOTE | 2024-02-03 06:04 | EX.ED.DYSGE1 ---
HPI History of Present Illness Chief Complaint: Overdose Informant: patient and EMS Narrative Narrative: Patient is a 48-year-old female with history of hypertension and polysubstance abuse. She states she has been clean and sober for approximately 1 year and then this evening had a relapse. She states she snorted fentanyl and then states she must have done too much as she does not remember anything until waking up in the ambulance. She states that her friend must of called 911. EMS states that police were first on scene and noted that she had minimal respirations and therefore began CPR. EMS states when they arrived they noted agonal respirations but a strong pulse and therefore stopped CPR and just bagged the patient for respiratory support and provided Narcan. After receiving Narcan the patient awoke. She complains of of sternal and right chest wall pain and with concern for potential rib fracture or pneumothorax as to be brought to the hospital for evaluation. PFSH PFS Medical History Substance abuse Hypertension Anxiety and depression Acute hypokalemia Opiate abuse, continuous HTN (hypertension) Polysubstance abuse Tobacco use Home Medications ?Medication ?Instructions ?Recorded ?Last Taken ?Type ibuprofen 600 mg tablet 600 mg PO 4X/DAY PRN pain #40 tabs 02/03/24 Unknown Rx lidocaine 5 % topical patch 2 patch topical DAILY PRN pain #30 02/03/24 Unknown Rx ea Allergy/AdvReac Type Severity Reaction Status Date / Time Penicillins Allergy Unknown Verified 02/03/24 05:51 Family History Mother Heart disease Hypertension Surgical History History of elective breast augmentation Social History Smoking Status: Current every day smoker tobacco type: e-cigarettes alcohol intake: never substance use type: heroin, opiates and other details: Snorts heroin, fentanyl, usually 1/2 gm daily. ROS ROS ED Constitutional Constitutional ED: Denies chills or fever(s) Eyes Eyes: Denies change in vision ENT ENT ED: Denies sore throat Cardiovascular Cardiovascular: Reports chest pain; Denies palpitations or racing heartbeat Respiratory/Chest Respiratory/Chest: Denies cough or dyspnea Gastrointestinal Gastrointestinal: Denies abdominal pain, diarrhea, nausea or vomiting Genitourinary Genitourinary ED: Denies dysuria Musculoskeletal Musculoskeletal: Denies back pain, myalgias or neck pain Integumentary Denies rash Neurologic Neurologic: Denies headache(s) Psychiatric Psychiatric: Denies suicidal ideation or suicidal thoughts Hematologic/Lymphatic Hematologic/Lymphatic: Denies easy bleeding or easy bruising EXAM Physical Exam Const Vital Signs: 02/03/24 05:46 02/03/24 05:52 02/03/24 06:36 Temperature 97.1 F L Temperature Source Oral Pulse Rate 95 99 Respiratory Rate 16 18 Respiratory Effort Normal Non-Labored Respiratory Depth Normal Respiratory Pattern Normal Blood Pressure 161/108 H 135/88 H Blood Pressure Mean 125 103 Pulse Ox 93 97 Oxygen Delivery Method Room Air Room Air Room Air 02/03/24 07:00 02/03/24 07:15 Temperature 98.3 F Temperature Source Pulse Rate 86 96 Respiratory Rate 16 17 Respiratory Effort Respiratory Depth Respiratory Pattern Blood Pressure 130/99 H 130/99 H Blood Pressure Mean 109 109 Pulse Ox 95 95 Oxygen Delivery Method Room Air Positive well nourished and well developed General Appearance ED: well developed; Negative for pallor HEENT HEENT Narrative: Normocephalic atraumatic Eyes PERRL and EOMs intact bilaterally General Eye ED: Negative for scleral icterus Neck supple and no JVD Neck Narrative: No nuchal rigidity or meningeal signs No crepitance palpated Chest Wall Chest Narrative: There is reproducible midsternal chest wall pain with palpation as well as right anterior chest wall pain along rib regions 4-6 No bony deformity or crepitance Resp normal respiratory effort and clear to auscultation bilaterally Cardio regular rate and regular rhythm Rate: other Other Details: Radial and carotid pulses are equal and symmetric GI non-tender and non-distended Auscultation: hypoactive bowel sounds Palpation: soft Extremity normal to inspection Neuro oriented x3, CN's II-XII intact bilaterally and no sensory deficits noted Sensorium / Orientation: alert Motor Exam: strength 5/5 throughout Psych mental status grossly normal Skin no rashes or lesions noted General Skin Exam: Negative for jaundice or pallor MDM MDM Radiography Diagnostic Testing: Clinical Impression(s) from Imaging Studies Ribs w/Chest X-Ray 02/03/24 06:02 IMPRESSION: Acute fractures of the anterolateral right fourth through sixth ribs. No pneumothorax is identified. Electronically Signed: Tone Pulido MD at 7:01 EDT , Discharge Plan Triage Chief Complaint: Overdose ED Provider: Konrad Spence Dx/Rx/DC Orders Clinical Impression: Multiple rib fractures, Opioid overdose Instructions: ED Rib Fracture Prescriptions: New ibuprofen 600 mg tablet 600 mg PO 4X/DAY PRN (Reason: pain) Qty: 40 0RF lidocaine 5 % adhesive patch,medicated 2 patch topical DAILY PRN (Reason: pain) Qty: 30 1RF Rx Instructions: leave on most painful area for up to 12 hrs Primary Care Provider: Care Physician,No Primary Referrals: Maxi Baldwin MD [Med Staff - Active Staff] - Care Physician,No Primary [Primary Care Provider] - Activity Restrictions/Additional Instructions: Please use the prescribed ibuprofen and lidocaine patches for pain control. Remember to take deep breaths using your incentive spirometer at least once every hour while you are awake to prevent pneumonia. Return to the ER should you have any further concerns Print Language: Moroccan Disposition Disposition: Home, Self Care
[2024-02-03] MEDS: Ketorolac 30 MG/ML Syringe IM (06:09)
[2024-02-03 06:36] VITALS: BP 135/88; PULSE 99; RESP 18; O2SAT 97
[2024-02-03 07:00] VITALS: BP 130/99; PULSE 86; RESP 16; O2SAT 95
[2024-02-03 07:15] VITALS: BP 130/99; PULSE 96; RESP 17; TEMP 36.8; O2SAT 95
== END 2024-02-03 07:25 | disposition home or self-care (01) ==
PROVIDERS: Emergency Provider Emergency Medicine; Visit Provider Emergency Medicine
DX: S22.41XA Multiple fractures of ribs, right side, initial encounter for closed fracture (principal); F11.10 Opioid abuse, uncomplicated; I10 Essential (primary) hypertension; F17.290 Nicotine dependence, other tobacco product, uncomplicated
CPT/HCPCS: 71101; 96372; 99284